=== PATIENT | female | born 1965 | race Caucasian/White ===

== ENCOUNTER 2018-05-08 16:36 | Outpatient (CLI) | payer BC ==
--- NOTE | 2018-05-08 19:26 | CT ---
CT ABDOMEN AND PELVIS WITHOUT CONTRAST: 05/08/18 HISTORY: Flank pain. COMPARISON: None. FINDINGS: There is a 4 mm nodule in the right lower lobe. No pericardial effusion. There is severe right sided hydroureteronephrosis with perinephric stranding. The distal right ureter appears to be normal. There appears to be a punctate 1 x 2 mm calculus at the right ureteropelvic ju nction, although is not very dense and may be sequela of volume averaging. The amount of obstruction is greater than would be expected for just a small calculus. No other calculus is seen within the rig ht renal collecting system. Opacity right renal pelvis. There is no dilatation of the ureter. Mild ri ght periureteral stranding. Noncontrast portion of the liver and gallbladder are unremarkable. The spleen is unremarkable. The ao rtoiliac contour is normal. No dilated loops of large or small bowel. IMPRESSION: 1. Extensive perinephric stranding and moderate to severe right sided hydronephrosis. 2. What appears to be 1 x 2 mm calculus of the right ureteropelvic junction. The amount of obstr uction is greater than what would be expected from such a small calculus and may be superimposed on c hronic UPJ narrowing. 3. Left sided cecum and malrotation. POS: [facility]
== END 2018-05-08 16:37 | disposition home or self-care (01) ==
LOC: MADLAB 16:36
PROVIDERS: ATTEND Family Medicine
DX: R31.29 Other microscopic hematuria (principal); R10.9 Unspecified abdominal pain; N13.2 Hydronephrosis with renal and ureteral calculous obstruction; Q43.3 Congenital malformations of intestinal fixation; Z87.442 Personal history of urinary calculi
CPT/HCPCS: 74176; 87086

== ENCOUNTER 2023-09-07 13:06 | Emergency (ER) | payer BC, SELFPAY ==
[2023-09-07 15:04] LABS: Bilirubin Negative (Negative); Blood, Urine Negative (Negative); CAUTI Indications for Culture Pelvic or flank pain; Clarity Hazy (Clear); Glucose, Urine (Dipstick) Negative (Negative); Ketone, Urine Negative (Negative); Leukocyte Small (Negative); Nitrite Negative (Negative); Protein, Urine (Dipstick) Negative (Neg-Trace); Specific Gravity, Urine 1.025 (1.005-1.030); Urobilinogen 0.2 mg/dL (Less than 2)
[2023-09-07] MEDS ORDERED: Sodium Chloride 0.9% 1,000 ML ONE (15:08)
[2023-09-07] MEDS ORDERED: Ketorolac Tromethamine 30 MG/ML VIAL ONE (15:08)
[2023-09-07 15:11] LABS: Bacteria/HPF 2+ HPF (None Seen); RBC/HPF 0-3 HPF (0-3); Squamous Epithelial 0-3 HPF (0-3); WBC/HPF Greater Than 50 HPF (0-3)
[2023-09-07] MEDS ORDERED: cefTRIAXone (ROCEPHIN) 2 GM VIAL ONE (15:29)
[2023-09-07] MEDS ORDERED: Sodium Chloride 0.9% 100 ML ONE (15:29)
[2023-09-07 15:31] LABS: #Basophils 0.1 thou/uL (0.0-0.2); #Lymphocytes 1.3 thou/uL (1.20-3.40); #Monocytes 0.5 thou/uL (0.11-0.59); #Neutrophils 8.3 thou/uL (1.40-6.50); %Basophils 0.8 % (0.0-1.0); %Eosinophils 0.5 % (0.0-10.0); %Lymphocytes 12.7 % (21.0-51.0); %Monocytes 4.5 % (0.0-10.0); %Neutrophils 81.5 % (42.0-75.0); Hematocrit 41.2 % (36.0-47.0); Hemoglobin 13.1 g/dL (12.0-16.0); Mean Corpuscular HGB CONC 31.7 g/dL (32.0-36.0); Mean Corpuscular Hemoglobin 27.7 pg (27.0-31.0); Mean Corpuscular Volume 87.3 fl (78.0-98.0); Mean Platelet Volume 8.6 fL (7.4-10.4); Platelet Count 264 10x3/uL (130-400); RBC Distribution Width 13.2 % (11.5-14.5); Red Blood Cell (RBC) Count 4.72 mill/uL (4.20-5.40); White Blood Cell (WBC) Count 10.2 10x3/uL (4.8-10.8)
[2023-09-07 15:45] LABS: ALT (SGPT) 19 U/L (8-55); AST (SGOT) 19 U/L (5-34); Albumin 4.1 g/dL (3.5-5.0); Alkaline Phosphatase 79 U/L (40-110); Anion Gap 18 mmol/L (10-20); BUN (Urea Nitrogen) 17 mg/dL (9.8-20.1); Bilirubin, Total 0.2 mg/dL (0.2-1.2); Calc. Creatinine Clearance 0 mL/min (70-130); Carbon Dioxide 20 mmol/L (22-29); Chloride 106 mmol/L (98-107); Estimated GFR 92; Globulin 3.3 g/dL (2.4-3.5); Glucose 119 mg/dL (70-105); Potassium 4.4 mmol/L (3.5-5.1); Protein, Total 7.4 g/dL (6.0-8.3); Sodium 140 mmol/L (136-145)
== END 2023-09-07 16:25 | disposition home or self-care (01) ==
LOC: MADERS 13:06
DX: N39.0 Urinary tract infection, site not specified (principal)
CPT/HCPCS: 80053; 81001; 85025; 96365; 96375; J0696; J1885; J3490; J7050

== ENCOUNTER 2023-09-20 04:18 | Emergency (ER) | payer SELFPAY ==
[2023-09-20 04:39] LABS: Bilirubin Negative (Negative); Blood, Urine Negative (Negative); Clarity Clear (Clear); Glucose, Urine (Dipstick) Negative (Negative); Ketone, Urine Negative (Negative); Leukocyte Negative (Negative); Nitrite Negative (Negative); Protein, Urine (Dipstick) Negative (Neg-Trace); Specific Gravity, Urine 1.025 (1.005-1.030); Urobilinogen 0.2 mg/dL (Less than 2)
[2023-09-20 04:42] LABS: CAUTI Indications for Culture Dysuria,urgency,freq; RBC/HPF None Seen HPF (0-3); Squamous Epithelial 0-3 HPF (0-3); WBC/HPF 0-3 HPF (0-3)
[2023-09-20 04:43] LABS: Urine Culture Reflex No No
[2023-09-20] MEDS ORDERED: cefTRIAXone (ROCEPHIN) 1 GM VIAL ONE (04:46)
[2023-09-20] MEDS ORDERED: Acetaminophen 500 MG TAB ONE (04:46)
[2023-09-20] MEDS ORDERED: Lidocaine 1% PF 5 ML VIAL ONE (04:46)
[2023-09-20] MEDS ORDERED: Phenazopyridine HCl 95 MG TAB ONE (04:46)
== END 2023-09-20 05:05 | disposition home or self-care (01) ==
LOC: MADERS 04:18
DX: N39.0 Urinary tract infection, site not specified (principal)
CPT/HCPCS: 81001; 87086; 96372; 99283; J0696